=== PATIENT | male | born 1955 | race African-American/Black ===

== ENCOUNTER 2025-03-03 00:38 | Inpatient (IN) | payer MEDICARE, MEDICAID ==
[~2025-03-03] VITALS: Ht 182.9 cm; Wt 100.7 kg
[2025-03-03 00:42] VITALS: O2SAT 97
[2025-03-03] MEDS: ACETAMINOPHEN 500MG TABLET PO ONE (01:56)
[2025-03-03 02:51] LABS: BASOPHILS % 0.6 % (0.0-2.0); EOSINOPHILS % 1.9 % (0.0-5.0); HEMATOCRIT. 51.5 % (42.0-52.0); HEMOGLOBIN. 17.2 g/dL (14.0-18.0); LYMPHOCYTES % 28.4 % (20.0-50.0); MEAN PLATELET VOLUME 8.0 fl (7.4-10.4); MONOCYTES % 6.2 % (2.0-8.0); NEUTROPHILS % 62.9 % (40.0-76.0); PLATELET 253 x1000/uL (130-400); RED BLOOD CELL COUNT 5.75 mill/uL (4.7-6.1); RED CELL DISTRIBUTION WIDTH 15.0 % (11.6-14.6)
[2025-03-03 03:02] LABS: CREATININE 1.0 mg/dL (0.6-1.3)
[2025-03-03 03:03] LABS: TROPONIN I HIGH SENSITIVITY 25 ng/L (3.0-53); UREA NITROGEN BLOOD 9 mg/dL (9-23)
[2025-03-03 03:04] LABS: ASPARTATE AMINOTRANSFERASE 72 IU/L (<34)
[2025-03-03 03:05] LABS: BILIRUBIN DIRECT 0.5 mg/dL (<=3.0); BILIRUBIN TOTAL 1.1 mg/dL (0.1-1.0); PROTEIN TOTAL 8.7 g/dL (6.0-8.3)
[2025-03-03] MEDS: HYDRALAZINE 20MG/ML VIAL IV ONE (04:15)
[2025-03-03 05:04] VITALS: BP 179/96; PULSE 64; RESP 18; TEMP 36; O2SAT 99
[2025-03-03 06:00] VITALS: BP 179/96; PULSE 64; RESP 18; TEMP 36.0288
[2025-03-03] MEDS: HYDROCODONE/ACETAMINOPHEN 5/325MG TABLET PO PRN (06:42)
[2025-03-03] MEDS: CLONIDINE 0.1MG TABLET PO PRN (06:42)
[2025-03-03] MEDS ORDERED: NALOXONE HCL 0.4MG/ML VIAL IV PRN (06:45)
[2025-03-03] MEDS: HYDRALAZINE HCL 25MG TABLET PO SCH (08:00)
[2025-03-03] MEDS ORDERED: ACETAMINOPHEN 325MG TABLET PO PRN (08:00)
[2025-03-03] MEDS ORDERED: CLONIDINE 0.1MG TABLET PO PRN (08:00)
[2025-03-03] MEDS ORDERED: IPRATROPIUM/ALBUTEROL 0.5-3(2.5)MG/3ML NEB HHN PRN (08:00)
[2025-03-03] MEDS ORDERED: ONDANSETRON HCL 4MG/2ML INJ IV PRN (08:00)
[2025-03-03] MEDS: AMLODIPINE 10MG TABLET PO SCH (09:00)
[2025-03-03] MEDS: FAMOTIDINE 20MG/2ML VIAL IV SCH (09:31)
[2025-03-03] MEDS: ENOXAPARIN 40MG/0.4ML SYR SUBCUT SCH (09:31)
[2025-03-03] MEDS: POTASSIUM CHLORIDE 20MEQ TABLET SR PO NR (09:48)
[2025-03-03 11:22] LABS: CREATINE KINASE MB FRACTION 6.4 ng/mL (0.5-3.6)
[2025-03-03 12:25] LABS: HEPATITIS C AB REACTIVE (Pos) (Negative)
[2025-03-03 12:52] LABS: TROPONIN I HIGH SENSITIVITY 25.0 ng/L (3.0-53)
[2025-03-03 15:15] LABS: BG BASE EXCESS 0.6 mmol/L (-2.0-3.0); BG CARBOXYHEMOGLOBIN 1.5 % (0.5-1.5); BG DEOXYHEMOGLOBIN 2.9 % (0.0-5.0); BG FRACTION INSPIRED OXYGEN 21; BG HCO3 ACT 24.2 mmol/L (21.0-28.0); BG METHEMOGLOBIN 0.3 % (0.5-1.5); BG OXYGEN SATURATION 97.0 % (94.0-98.0); BG OXYHEMOGLOBIN 95.3 % (94.0-98.0); BG PCO2 35.6 mmHg (35.0-48.0); BG PH 7.450 (7.350-7.450); BG PO2 91.4 mmHg (83.0-108.0); BG SAMPLE SITE RIGHT RADIAL; BG TOTAL HEMOGLOBIN 14.4 g/dL (13.5-17.5); BG VENT MODE ROOM AIR
[2025-03-03 20:00] VITALS: BP 142/88; PULSE 68; RESP 18; TEMP 37.6; O2SAT 98
[2025-03-03] MEDS: MELATONIN 3MG TABLET PO SCH (22:04)
[2025-03-03] MEDS: ATORVASTATIN CALCIUM 40MG TABLET PO SCH (22:11)
[2025-03-04] VITALS: BP 100/62; PULSE 65; RESP 18; TEMP 37.2; O2SAT 98
[2025-03-04 04:00] VITALS: BP 129/78; PULSE 59; RESP 18; TEMP 37; O2SAT 98
[2025-03-04] MEDS: LACTULOSE 20G/30ML UDC PO SCH (05:50)
[2025-03-04] MEDS: ASPIRIN 81MG TABLET PO SCH (11:15)
[2025-03-04 12:56] LABS: CREATININE 1.1 mg/dL (0.6-1.3); UREA NITROGEN BLOOD 13 mg/dL (9-23)
[2025-03-04 15:43] LABS: CLARITY URINE CLEAR (CLEAR); COLOR URINE DARK YELLOW (YELLOW); GLUCOSE URINE NEGATIVE (NEGATIVE); KETONES URINE TRACE (NEGATIVE); LEUKOCYTE ESTERASE URINE NEGATIVE (NEGATIVE); NITRITE URINE NEGATIVE (NEGATIVE); OCCULT BLOOD URINE NEGATIVE (NEGATIVE); PH URINE 6.0 (4.5-8.0); PROTEIN URINE NEGATIVE (NEGATIVE); SPECIFIC GRAVITY URINE 1.013 (1.005-1.030); UROBILINOGEN URINE 1.0 E.U./dL (0.2-1.0)
[2025-03-04 15:52] LABS: *AMPHETAMINES SCREEN URINE NEGATIVE (NEGATIVE); *BARBITURATES SCREEN URINE NEGATIVE (NEGATIVE); *BENZODIAZEPINES SCREEN URINE NEGATIVE (NEGATIVE); *COCAINE SCREEN URINE PRESUMPTIVE POSITIVE (NEGATIVE)
[2025-03-04 15:53] LABS: CANNABINOID URINE SCREEN PRESUMPTIVE POSITIVE (NEGATIVE); ECSTASY MDMA SCREEN URINE NEGATIVE (NEGATIVE); METHADONE URINE SCREEN NEGATIVE (NEGATIVE); OPIATES URINE SCREEN PRESUMPTIVE POSITIVE (NEGATIVE); PHENCYCLIDINE URINE SCREEN NEGATIVE (NEGATIVE)
[2025-03-04 20:00] VITALS: BP 130/81; PULSE 67; RESP 18; TEMP 36.5; O2SAT 98
[2025-03-05] MEDS ORDERED: HYDR100T11 MT (11:21)
[2025-03-05] MEDS ORDERED: ATOR-388 MT (11:21)
[2025-03-05] MEDS ORDERED: AMLO10TA80 MT (11:21)
[2025-03-05] MEDS ORDERED: ASPI-1406 MT (11:21)
[2025-03-05 20:00] VITALS: BP 152/89; PULSE 79; RESP 18; TEMP 36.7; O2SAT 99
[2025-03-06] VITALS: BP 123/73; PULSE 60; RESP 18; TEMP 36.5; O2SAT 96
[2025-03-06 04:00] VITALS: BP 118/72; PULSE 76; RESP 18; TEMP 36.6; O2SAT 98
[2025-03-06 08:00] VITALS: BP 153/96; PULSE 61; RESP 18; TEMP 36.3; O2SAT 99
[2025-03-06 12:00] VITALS: BP 115/82; PULSE 82; RESP 18; TEMP 36.4; O2SAT 100
[2025-03-06 16:00] VITALS: BP 113/68; PULSE 63; RESP 18; TEMP 36.4; O2SAT 98
[2025-03-06 20:00] VITALS: BP 117/64; PULSE 62; RESP 18; TEMP 37; O2SAT 99
[2025-03-07] VITALS: BP 152/72; PULSE 84; RESP 18; TEMP 37.1; O2SAT 98
[2025-03-07 04:00] VITALS: BP 128/74; PULSE 64; RESP 18; TEMP 36.5; O2SAT 97
[2025-03-07 08:00] VITALS: BP 134/81; PULSE 61; RESP 20; TEMP 36.3; O2SAT 97
[2025-03-07 12:00] VITALS: BP 126/69; PULSE 67; RESP 20; TEMP 36.4; O2SAT 97
[2025-03-07 16:00] VITALS: BP 132/81; PULSE 75; RESP 20; TEMP 36.3; O2SAT 99
[2025-03-07 20:00] VITALS: BP 128/71; PULSE 61; RESP 18; TEMP 36.1; O2SAT 95
[2025-03-08] VITALS: BP 135/72; PULSE 72; RESP 18; TEMP 36; O2SAT 97
[2025-03-08 04:00] VITALS: BP 125/70; PULSE 65; RESP 18; TEMP 36.1; O2SAT 98
[2025-03-08 08:00] VITALS: BP 129/71; PULSE 65; RESP 16; TEMP 36.6; O2SAT 96
[2025-03-08 12:00] VITALS: BP 130/68; PULSE 70; RESP 16; TEMP 36.6; O2SAT 97
[2025-03-08] MEDS: ACETAMINOPHEN 325MG TABLET PO PRN (15:46)
[2025-03-08 16:00] VITALS: BP 133/81; PULSE 89; RESP 16; TEMP 36.4; O2SAT 98
[2025-03-08 20:00] VITALS: BP 143/82; PULSE 62; RESP 18; TEMP 36; O2SAT 98
[2025-03-08] MEDS: HYDROCODONE/ACETAMINOPHEN 10/325MG TABLET PO PRN (21:54)
[2025-03-09] VITALS: BP 117/69; PULSE 61; RESP 18; TEMP 36.2; O2SAT 97
[2025-03-09 02:00] VITALS: BP 117/69; PULSE 61; RESP 18; TEMP 36.2; O2SAT 97
[2025-03-09 04:00] VITALS: BP 114/67; PULSE 68; RESP 18; TEMP 36.1; O2SAT 92
[2025-03-09 08:00] VITALS: BP 129/93; PULSE 77; RESP 16; TEMP 36.3; O2SAT 98
[2025-03-09 20:00] VITALS: BP 125/76; PULSE 65; RESP 18; TEMP 35.9; O2SAT 96
[2025-03-10] VITALS (7 sets, daily range): BP systolic 122–142; BP diastolic 61–85; PULSE 61–72; RESP 16–18; TEMP 36.2–36.4; O2SAT 95–98
[2025-03-10 07:32] LABS: CREATININE 1.1 mg/dL (0.6-1.3); UREA NITROGEN BLOOD 15 mg/dL (9-23)
[2025-03-10 07:34] LABS: PHOSPHORUS 3.4 mg/dL (2.5-4.9)
[2025-03-10 07:42] LABS: BASOPHILS % 0.5 % (0.0-2.0); EOSINOPHILS % 1.9 % (0.0-5.0); HEMATOCRIT. 38.4 % (42.0-52.0); HEMOGLOBIN. 13.0 g/dL (14.0-18.0); LYMPHOCYTES % 26.3 % (20.0-50.0); MEAN PLATELET VOLUME 8.7 fl (7.4-10.4); MONOCYTES % 10.0 % (2.0-8.0); NEUTROPHILS % 61.3 % (40.0-76.0); PLATELET 228 x1000/uL (130-400); RED BLOOD CELL COUNT 4.30 mill/uL (4.7-6.1); RED CELL DISTRIBUTION WIDTH 14.7 % (11.6-14.6)
[2025-03-10] MEDS: DOCUSATE SODIUM 100MG CAPSULE PO PRN (14:02)
== END 2025-03-10 18:42 | DRG 640 ==
LOC: ER 00:38 → 5WST 03:21 → EDBEDREQTM 03:34 → EDBEDREQ 03:34 → ENRESERV 04:12 → 7EST 03-06 06:15
PROVIDERS: ADMIT Internal Medicine; ATTEND Internal Medicine
DX: E87.6 Hypokalemia (principal); G92.9 Unspecified toxic encephalopathy; I69.351 Hemiplegia and hemiparesis following cerebral infarction affecting right dominant side; M62.82 Rhabdomyolysis; Z59.00 Homelessness unspecified; R74.01 Elevation of levels of liver transaminase levels; I10 Essential (primary) hypertension; F17.210 Nicotine dependence, cigarettes, uncomplicated; Z95.0 Presence of cardiac pacemaker
CPT/HCPCS: 36415; 36600; 71045; 74176; 80048; 80076; 80305; 80320; 81003; 82140; 82375; 82550; 82553; 82805; 82962; 83735; 83880; 84100; 84484; 85025; 86705; 87340; 93005; 97116; 97162; 97166; 97535; 99285; A4606; J0360; J1308; J1650; G0480